=== PATIENT | female | born 1990 | race Hispanic/Latino ===

== ENCOUNTER 2020-02-26 18:38 | Emergency (ER) | payer MEDICAID, OTHER ==
[2020-02-26 19:59] LABS: RAPID GROUP A STREP NEGATIVE (NEGATIVE)
== END 2020-02-26 20:46 | disposition home or self-care (01) ==
LOC: EDH 18:38
DX: J20.9 Acute bronchitis, unspecified (principal)
CPT/HCPCS: 87804; 87880

== ENCOUNTER 2020-07-23 21:26 | Emergency (ER) | payer OTHER ==
[2020-07-23] MEDS ORDERED: HYDROCODONE/ACETAMINOPHEN 10/325 MG TAB ONE (22:16)
[2020-07-23] MEDS ORDERED: ONDANSETRON ODT 4 MG TAB ONE (22:16)
== END 2020-07-23 23:31 | disposition home or self-care (01) ==
LOC: EDH 21:26
DX: T63.311A Toxic effect of venom of black widow spider, accidental (unintentional), initial encounter (principal); R20.2 Paresthesia of skin; Z90.49 Acquired absence of other specified parts of digestive tract; Y92.89 Other specified places as the place of occurrence of the external cause
CPT/HCPCS: 81025